=== PATIENT | female | born 1940 | race Two or more races ===

== ENCOUNTER 2022-08-20 22:31 | Emergency (ER) | payer OTHER ==
[~2022-08-20] VITALS: Ht 160 cm; Wt 87.5 kg
[2022-08-20] MEDS: ONDANSETRON HCL/PF 4 MG/2 ML VIAL IVP ONE ×2 (01:00→23:30)
--- NOTE | 2022-08-20 22:44 | NUR ---
[id number] FROM HOME C/O HEADACHE, WEAKNESS, DIZZY S/P SLIP & GLF TODAY -TRAUMA -LOC -BLOODTHINNERS. DRESSING ON LLE FROM LYMPH NODE BIOPSY. PT A/OX3. TOLERATING R/A WELL WITH NO RESP DISTRESS. SAFETY MEASURES IN PLACE.
--- NOTE | 2022-08-20 22:47 | NUR ---
URINE COLLECTED AND SENT TO LAB
--- NOTE | 2022-08-20 22:56 | NUR ---
DR NIKITA BOLTON AT PT'S BEDSIDE FOR EVAL
[2022-08-20] MEDS ORDERED: IV NS 0.9% 1,000 ML BAG IV ONE (23:00)
--- NOTE | 2022-08-20 23:30 | NUR ---
20GA RT FOREARM ESTABLISHED
--- NOTE | 2022-08-20 23:51 | NUR ---
PHARMACY ACCOUNT DIRECTOR AT PT'S BEDSIDE
--- NOTE | 2022-08-21 00:06 | NUR ---
BACK FROM CT
[2022-08-21 00:13] LABS: BASOPHILS % (AUTO) 0.1 % (0.0-2.0); EOSINOPHILS % (AUTO) 0.1 % (0.0-6.0); HEMATOCRIT 40 % (33-45); HEMOGLOBIN 13.1 g/dL (11.5-14.8); LYMPHOCYTES # (AUTO) 0.6 K/uL (0.8-4.8); MEAN CORPUSCULAR HGB CONC 33 g/dl (31.0-36.0); MEAN CORPUSCULAR VOLUME 90 fL (82-100); MONOCYTES # (AUTO) 0.5 K/uL (0.1-1.30); MONOCYTES % (AUTO) 2.4 % (2.0-12.0); NEUTROPHILS # (AUTO) 18.9 K/uL (1.8-8.9); NEUTROPHILS % (AUTO) 94.4 % (43.0-81.0); PLATELET COUNT (AUTO) 132 K/uL (150-450); RED BLOOD CELL COUNT(AUTO) 4.48 MIL/uL (4.0-5.2); WHITE BLOOD COUNT (AUTO) 20.1 K/uL (4.3-11.0)
[2022-08-21 00:33] LABS: ALANINE AMINOTRANSFERASE 15 U/L (12-78); ALKALINE PHOSPHATASE 36 U/L (46-116); ASPARTATE AMINOTRANSFERASE 12 U/L (15-37); BILIRUBIN,DIRECT 0.3 mg/dL (0.0-0.2); BILIRUBIN,TOTAL 1.2 mg/dL (0.2-1.0); CALCIUM, SERUM 8.9 mg/dL (8.5-10.1); CARBON DIOXIDE 22 mmol/L (21-32); CHLORIDE 95 mmol/L (98-107); GLUCOSE 338 mg/dL (74-106); LIPASE 44 U/L (73-393); POTASSIUM 3.9 mmol/L (3.5-5.1); SODIUM SERUM 130 mmol/L (136-145); TOTAL PROTEIN, SERUM 7.1 g/dL (6.4-8.2); UREA NITROGEN, BLOOD 17 mg/dL (7-18)
--- NOTE | 2022-08-21 00:34 | NUR ---
COVID ANTIGEN SWAB COLLECTED AND SENT TO LAB
[2022-08-21 00:49] LABS: BILIRUBIN,URINE NEGATIVE (NEGATIVE); COLOR,URINE YELLOW (YELLOW); LEUKOCYTE ESTERASE ,URINE NEGATIVE (NEGATIVE); NITRITE, URINE NEGATIVE (NEGATIVE); PH,URINE 5.5 (5.0-8.0); PROTEIN,URINE NEGATIVE (NEGATIVE); UGLUCOSE TRACE mg/dL (NEGATIVE); UROBILINOGEN,URINE 0.2 EU/dL (0.2)
[2022-08-21] MEDS ORDERED: HYDROCODONE/APAP 5/325MG TABLET PO ONE (01:00)
[2022-08-21] MEDS ORDERED: VANCOMYCIN 1 GM in IV D5W 250 ML IV ONE (01:00)
[2022-08-21] MEDS ORDERED: ONDANSETRON HCL/PF 4 MG/2 ML VIAL ONE (01:07)
--- NOTE | 2022-08-21 01:07 | NUR ---
[facility] CONTACT #: CHARMAINE [phone]
[2022-08-21] MEDS ORDERED: HYDROCODONE/APAP 5/325MG TABLET ONE (01:08)
[2022-08-21] MEDS ORDERED: VANCOMYCIN 1 GM VIAL ONE (01:08)
[2022-08-21 01:33] LABS: BAND % (MANUAL) 3 % (0.0-5.0); LYMPHOCYTES % (MANUAL) 1 % (16-48); MONOCYTES % (MANUAL) 2 % (0-11.0); NEUTROPHILS % (MANUAL) 93 (42-76)
--- NOTE | 2022-08-21 01:45 | NUR ---
CALLED [facility], AWAITING FOR DR HITCHCOCK'S CALL BACK.
--- NOTE | 2022-08-21 02:01 | NUR ---
DR HITCHCOCK ON THE PHONE WITH DR SHELTON
--- NOTE | 2022-08-21 02:15 | NUR ---
DR SHELTON AT THE BED SIDE SPEAKING TO THE PATIENT AND HIS SON.
--- NOTE | 2022-08-21 02:32 | NUR ---
PT GOT ACCEPTED AT [facility] UNDER CARE OF DR STONE, GOING TO ED, # FOR REPORT: [phone]. [facility] ETA: [id number]
--- NOTE | 2022-08-21 03:11 | NUR ---
REPORT GIVEN TO [facility], ATIYA RN
--- NOTE | 2022-08-21 03:12 | NUR ---
REPORT GIVEN TO [facility] EMT FOR [facility], EMT AT PT'S BEDSIDE TO TRANSFER PT TO [facility] FOR [facility].
[2022-08-21 03:31] VITALS: BP 107/46
== END 2022-08-21 03:35 | disposition short-term general hospital (02) ==
LOC: ER 22:34
DX: L03.116 Cellulitis of left lower limb (principal); E86.0 Dehydration; D72.829 Elevated white blood cell count, unspecified; R51.9 Headache, unspecified; R53.1 Weakness; R73.9 Hyperglycemia, unspecified; Z20.822 Contact with and (suspected) exposure to COVID-19
CPT/HCPCS: 99285; 70450; 71045; 96361; 96375; 93005; 36415; 82962; 96365; 87426; 85025; 80048; 82010; 83605; 83690; 80076; 83735; 81003; 84484; 87081; 85007; J7030; A4223 ×2; J3370; J2405; C9803